=== PATIENT | female | born 1935 | race Caucasian/White ===

== ENCOUNTER 2017-06-14 11:34 | Emergency (ER) | payer OTHER ==
[2017-06-14 11:43] VITALS: RESP 18; O2SAT 96
--- NOTE | 2017-06-14 12:12 | EDPHY ---
General Time Seen by Provider: 06/14/17 11:58 Narrative: CHIEF COMPLAINT: Left back pain HISTORY OF PRESENT ILLNESS: Patient arrives by EMS and is seen shortly after arrival. Patient complains of left-sided back and flank pain. This started abruptly at 4:00 a.m. Thursday. It is located only on the left side. No midline tenderness. It feels "like when I had shingles." Described as a burning sensation of the skin. Very sensitive to the touch. No trauma or injury. No urinary complaints. No abdominal pain. No fever or chills. No rash or lesion anywhere. She has attempted Tylenol and heating pads with no improvement. She has history of shingles several years ago. At that time she refused treatment with pain medication resolved. She says that this is the same pain. Minimal improvement in route with IV fentanyl by EMS. No other associated complaints or modifying factors. REVIEW OF SYSTEMS: Ten systems reviewed and are negative unless otherwise noted in the HPI PCP: Dr. Duvall SPECIALISTS: None PAST MEDICAL HISTORY: Shingles, "peripheral neuralgia"no a vaccinations PAST SURGICAL HISTORY: No recent surgeries SOCIAL HISTORY: Nonsmoker. Occasional alcohol. No drug use. 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 No lesions or vesicles ENT, Mouth: Mucous membranes moist Neck: Normal inspection, supple, non-tender Respiratory: Lungs are clear to auscultation. No wheezing, rhonchi or crackles Cardiovascular: Regular rate and rhythm. No murmur Gastrointestinal: Abdomen is soft and nontender Back: Localized tenderness of the left flank. No midline tenderness. Neurological: A&O, nonfocal, normal gait Skin: Warm and dry, mild erythema of the left flank. No vesicles or lesions. No abnormality of the skin of the face Extremities: Nontender, no pedal edema Psychiatric: Mood and affect normal DIFFERENTIAL DIAGNOSES: Including but not limited to shingles, musculoskeletal pain, renal colic MDM: 12:10 p.m. Moderate tenderness palpation of the left flank that seems to be from the skin alone. There is no obvious lesion or vesicles. Patient reports that this is same she shingles in the past. I have ordered laboratory studies and urinalysis for further evaluation. She is declining pain medication at this time. 12:40 p.m. CBC chemistry unremarkable. Urinalysis pending. 1:10 p.m. Urinalysis unremarkable. I have re-evaluated the patient. She is continue to refuse any pain medication here. We discussed the possibility of shingles. We discuss Valtrex, pain medication and follow up with primary care physician. We discussed contact precautions. We discussed ED precautions. She is comfortable this plan and discharged home stable condition. SUPERVISION: Patient was independently examined, but I discussed the case with my secondary supervising physician Dr. Conway - History Smoking Status: Never smoked - Objective Vital Signs: Initial Vital Signs Temperature (C) 97.9 F 06/14/17 11:39 Heart Rate 61 06/14/17 11:39 Respiratory Rate 18 06/14/17 11:39 Blood Pressure 152/96 H 06/14/17 11:39 O2 Sat (%) 96 06/14/17 11:39 O2 Delivery Mode Room Air Allergies/Adverse Reactions: Penicillins Allergy (Unknown, Verified 04/11/12 13:38) Home Medications: Medication Instructions Recorded Atenolol [Tenormin 25 mg (RX)] 25 mg PO BID 04/11/12 Hydrocodone/APAP 5/325 [[place] 1 - 2 tab PO Q4PRN #20 tab 04/11/12 5/325 (*)] oxyCODONE HCL/ACETAMINOPHEN 1 each PO Q4-6PRN PRN #15 tablet 06/14/17 [Percocet 5-325 mg Tablet] valACYclovir [Valtrex (*)] 1,000 mg PO Q8 7 Days tab 06/14/17 Laboratory Results: Laboratory Results 06/14/17 12:00 06/14/17 12:00 06/14/17 06/14/17 06/14/17 12:30 12:00 12:00 WBC 4.35 10^3/uL 10^3/uL (3.80-9.50) RBC 4.65 10^6/uL 10^6/uL (4.18-5.33) Hgb 15.1 g/dL g/dL (12.6-16.3) Hct 44.3 % % (38.0-47.0) MCV 95.3 fL fL (81.5-99.8) MCH 32.5 pg pg (27.9-34.1) MCHC 34.1 g/dL g/dL (32.4-36.7) RDW 12.9 % % (11.5-15.2) Plt Count 301 10^3/uL 10^3/uL (150-400) MPV 9.1 fL fL (8.7-11.7) Neut % (Auto) 54.3 % % (39.3-74.2) Lymph % (Auto) 30.3 % % (15.0-45.0) [place] % (Auto) 11.3 % % (4.5-13.0) Eos % (Auto) 2.8 % % (0.6-7.6) Baso % (Auto) 1.1 % % (0.3-1.7) Nucleat RBC Rel Count 0.0 % % (0.0-0.2) Absolute Neuts (auto) 2.36 10^3/uL 10^3/uL (1.70-6.50) Absolute Lymphs (auto) 1.32 10^3/uL 10^3/uL (1.00-3.00) Absolute Monos (auto) 0.49 10^3/uL 10^3/uL (0.30-0.80) Absolute Eos (auto) 0.12 10^3/uL 10^3/uL (0.03-0.40) Absolute Basos (auto) 0.05 10^3/uL 10^3/uL (0.02-0.10) Absolute Nucleated RBC 0.00 10^3/uL 10^3/uL (0-0.01) Immature Gran % 0.2 % % (0.0-1.1) Immature Gran # 0.01 10^3/uL 10^3/uL (0.00-0.10) Sodium 139 mEq/L mEq/L (135-145) Potassium 4.5 mEq/L mEq/L (3.5-5.2) Chloride 102 mEq/L mEq/L (97-110) Carbon Dioxide 24 mEq/l mEq/l (22-31) Anion Gap 13 mEq/L mEq/L (8-16) BUN 20 mg/dL mg/dL (7-23) Creatinine 0.9 mg/dL mg/dL (0.6-1.0) Estimated GFR > 60 Glucose 84 mg/dL mg/dL (70-100) Calcium 9.6 mg/dL mg/dL (8.5-10.4) Urine Color YELLOW Urine Appearance CLEAR Urine pH 7.0 (5.0-7.5) Ur Specific [place] 1.017 (1.002-1.030) Urine Protein NEGATIVE (NEGATIVE) Urine Ketones NEGATIVE (NEGATIVE) Urine Blood NEGATIVE (NEGATIVE) Urine Nitrate NEGATIVE (NEGATIVE) Urine Bilirubin NEGATIVE (NEGATIVE) Urine Urobilinogen NEGATIVE EU EU (0.2-1.0) Ur Leukocyte Esterase NEGATIVE (NEGATIVE) Urine Glucose NEGATIVE (NEGATIVE) Medications Given: Discontinued Medications Oxycodone/Acetaminophen (Percocet 5/325) 1 tab PO EDNOW ONE Stop: 06/14/17 13:32 Last Admin: 06/14/17 13:33 Dose: 1 tab Departure - Departure Disposition: Home, Routine, Self-Care Clinical Impression: Flank pain Shingles Qualifiers: Herpes zoster complications: without complications Qualified Code(s): B02.9 - Zoster without complications Condition: Good Instructions: Shingles (ED) Additional Instructions: 1. Antiviral Medication as prescribed to completion 2. Pain medication as prescribed as needed 3. Follow up with primary care physician in the next 2-3 days 4. ED precautions as discussed Referrals: Kitty Duvall MD [Medical Doctor] - As per Instructions Prescriptions: oxyCODONE HCL/ACETAMINOPHEN [Percocet 5-325 mg Tablet] 1 each PO Q4-6PRN PRN # 15 tablet PRN Reason: Pain, Breakthrough valACYclovir [Valtrex (*)] 1,000 mg PO Q8 7 Days tab
[2017-06-14 12:19] LABS: PLATELET COUNT 301 10^3/uL (150-400)
[2017-06-14] MEDS ORDERED: OXYCODONE/APAP 5/325 TAB PO ONE (13:31)
[2017-06-14 13:36] VITALS: BP 140/71; PULSE 79; TEMP 98.4
== END 2017-06-14 13:34 | disposition home or self-care (01) ==
LOC: EDUNIT# → EDBD
DX: B02.9 Zoster without complications (principal)